=== PATIENT | male | born 1950 | race Caucasian/White ===

== ENCOUNTER → 2017-02-21 | Outpatient (CLI) | payer MEDICARE, BC, OTHER ==
[~2017-02-21] MED LIST: ALTA5CAP OR; BABY81CH OR; CORE6.25 OR; LIPI80TA OR; OMEP20TA7 OR
[2017-02-21 12:55] LABS: BASO % 0.8 % (0.0-1.0); EOS # 0.2 K/mm3 (0.0-0.50); EOS % 3.9 % (0.0-3.0); LARGE UNSTAINED CELL # 0.1 K/mm3 (0.0-0.4); LYMPH # 2.2 K/mm3 (1.5-4.5); LYMPH % 42.2 % (24.0-44.0); MEAN CORPUSCULAR HEMOGLOBIN 31.6 pg (27.0-33.0); MEAN CORPUSCULAR HGB CONC 33.7 g/dl (32.0-36.5); MEAN CORPUSCULAR VOLUME 93.7 fl (80.0-96.0); MONO # 0.4 K/mm3 (0.0-0.8); NEUTROPHILS # 2.1 K/mm3 (1.8-7.7); NEUTROPHILS % 43.1 % (36.0-66.0); PLATELET COUNT, AUTOMATED 191 k/mm3 (150-450); RED CELL DISTRIBUTION WIDTH 13.5 % (11.5-14.5)
[2017-02-21 13:11] LABS: ALBUMIN 3.5 GM/DL (3.2-5.2); ALBUMIN/GLOBULIN RATIO 1.03 (1.00-1.93); ALKALINE PHOSPHATASE 93 U/L (45-117); ALT/SGPT 55 U/L (12-78); ANION GAP 7 MEQ/L (8-16); AST/SGOT 27 U/L (15-37); BILIRUBIN,TOTAL 0.5 MG/DL (0.2-1.0); BLOOD UREA NITROGEN 14 MG/DL (7-18); CALCIUM LEVEL 8.7 MG/DL (8.8-10.2); CARBON DIOXIDE LEVEL 29 MEQ/L (21-32); CHLORIDE LEVEL 105 MEQ/L (98-107); CHOLESTEROL LEVEL 138 MG/DL (<200); CREATININE FOR GFR 0.79 MG/DL (0.70-1.30); GLOMERULAR FILTRATION RATE > 60.0 (>49); GLUCOSE, FASTING 102 MG/DL (80-110); POTASSIUM SERUM 4.2 MEQ/L (3.5-5.1); SODIUM LEVEL 141 MEQ/L (136-145); TOTAL PROTEIN 6.9 GM/DL (6.4-8.2); TRIGLYCERIDES LEVEL 61 MG/DL (<150)
[2017-02-23 00:06] LABS: PSA TOTAL 0.8 ng/mL (0.0-4.0)
== END ==
LOC: M WUC 09:04
PROVIDERS: ATTEND Nurse Practitioner Family
DX: I10 Essential (primary) hypertension (principal); E78.5 Hyperlipidemia, unspecified; I25.9 Chronic ischemic heart disease, unspecified; Z12.5 Encounter for screening for malignant neoplasm of prostate

== ENCOUNTER 2017-06-11 09:48 | Day surgery (SDC) | payer MEDICARE, BC, OTHER ==
[2017-06-11] MEDS: NS 1,000 ML IV (10:00)
[2017-06-11] MEDS ORDERED: PROPOFOL 200 MG/20 ML VIAL As Ordered ×4 (11:42→12:01)
[2017-06-11] MEDS ORDERED: LIDOCAINE 2% INJ 100 MG/5 ML SDV (FOR ANES.) As Ordered (11:42)
== END 2017-06-11 12:46 | disposition home or self-care (01) ==
LOC: M OPP 09:48
DX: Z12.11 Encounter for screening for malignant neoplasm of colon (principal); K64.0 First degree hemorrhoids; D12.3 Benign neoplasm of transverse colon; K62.1 Rectal polyp; Z80.0 Family history of malignant neoplasm of digestive organs; R12 Heartburn; K22.8 Other specified diseases of esophagus; K44.9 Diaphragmatic hernia without obstruction or gangrene; I10 Essential (primary) hypertension; E78.00 Pure hypercholesterolemia, unspecified; I25.2 Old myocardial infarction; Z95.5 Presence of coronary angioplasty implant and graft; Z79.82 Long term (current) use of aspirin; Z79.899 Other long term (current) drug therapy; Z87.891 Personal history of nicotine dependence
CPT/HCPCS: 45385

== ENCOUNTER → 2017-09-08 | Outpatient (CLI) | payer MEDICARE, BC, OTHER ==
[2017-09-08 12:40] LABS: BASO # 0.1 10^3/uL (0.0-0.2); BASO % 0.7 % (0.0-1.0); EOS # 0.4 10^3/uL (0.0-0.50); EOS % 4.8 % (0.0-3.0); HEMATOCRIT 45.8 % (42.0-52.0); HEMOGLOBIN 15.5 g/dl (13.5-17.5); IMMATURE GRANULOCYTE % 0.3 % (0-3.0); LYMPH # 2.9 10^3/uL (1.5-4.5); LYMPH % 39.8 % (24.0-44.0); MEAN CORPUSCULAR HGB CONC 33.8 g/dl (32.0-36.5); MEAN CORPUSCULAR VOLUME 91.6 fl (80.0-96.0); MONO # 0.7 10^3/uL (0.0-0.8); MONO % 9.5 % (0.0-5.0); NEUTROPHILS # 3.3 10^3/uL (1.8-7.7); NEUTROPHILS % 44.9 % (36.0-66.0); PLATELET COUNT, AUTOMATED 192 10^3/uL (150-450); RED CELL DISTRIBUTION WIDTH 12.9 % (11.5-14.5); WHITE BLOOD COUNT 7.3 10^3/uL (4.0-10.0)
[2017-09-08 13:06] LABS: ALBUMIN 3.5 GM/DL (3.2-5.2); ALKALINE PHOSPHATASE 109 U/L (45-117); ALT/SGPT 84 U/L (12-78); ANION GAP 6 MEQ/L (8-16); AST/SGOT 55 U/L (7-37); BILIRUBIN,TOTAL 0.6 MG/DL (0.2-1.0); BLOOD UREA NITROGEN 21 MG/DL (7-18); CALCIUM LEVEL 8.8 MG/DL (8.8-10.2); CARBON DIOXIDE LEVEL 29 MEQ/L (21-32); CHLORIDE LEVEL 106 MEQ/L (98-107); CHOLESTEROL LEVEL 136 MG/DL (<200); CHOLESTEROL RISK RATIO 2.193 (<5); CREATININE FOR GFR 0.73 MG/DL (0.70-1.30); GLOMERULAR FILTRATION RATE > 60.0 (>49); GLUCOSE, FASTING 88 MG/DL (70-100); HDL CHOLESTEROL 62 MG/DL (>40); LDL CHOLESTEROL 36.8 MG/DL (<100); NON-HDL-C 74 MG/DL; POTASSIUM SERUM 4.5 MEQ/L (3.5-5.1); SODIUM LEVEL 141 MEQ/L (136-145); TRIGLYCERIDES LEVEL 186 MG/DL (<150)
== END ==
LOC: M WUC 10:37
DX: I10 Essential (primary) hypertension (principal); E78.5 Hyperlipidemia, unspecified
CPT/HCPCS: 80053

== ENCOUNTER → 2018-01-28 | Outpatient (CLI) | payer MEDICARE, BC, OTHER | LOC: M RAD 07:53 | DX: M51.36 Other intervertebral disc degeneration, lumbar region (principal); M51.37 Other intervertebral disc degeneration, lumbosacral region; M25.78 Osteophyte, vertebrae; M16.12 Unilateral primary osteoarthritis, left hip; R93.7 Abnormal findings on diagnostic imaging of other parts of musculoskeletal system ==

== ENCOUNTER → 2018-01-28 | Outpatient (CLI) | payer MEDICARE, BC, OTHER | LOC: M RAD 06:57 | DX: H90.A21 Sensorineural hearing loss, unilateral, right ear, with restricted hearing on the contralateral side (principal); I67.81 Acute cerebrovascular insufficiency; G31.9 Degenerative disease of nervous system, unspecified; M51.36 Other intervertebral disc degeneration, lumbar region; M51.37 Other intervertebral disc degeneration, lumbosacral region; M25.78 Osteophyte, vertebrae; M16.12 Unilateral primary osteoarthritis, left hip; R93.7 Abnormal findings on diagnostic imaging of other parts of musculoskeletal system | CPT/HCPCS: 70551 ==

== ENCOUNTER → 2018-01-31 | Outpatient (CLI) | payer MEDICARE, BC, OTHER | LOC: M RAD 10:35 | DX: M54.5 Low back pain (principal) | CPT/HCPCS: 72148 ==

== ENCOUNTER → 2018-02-24 | Outpatient (CLI) | payer MEDICARE, BC, OTHER ==
[2018-02-24 12:23] LABS: BASO # 0.1 10^3/uL (0.0-0.2); BASO % 0.8 % (0.0-1.0); EOS # 0.3 10^3/uL (0.0-0.50); HEMATOCRIT 44.6 % (42.0-52.0); HEMOGLOBIN 15.4 g/dl (13.5-17.5); IMMATURE GRANULOCYTE % 0.3 % (0-3.0); LYMPH # 2.4 10^3/uL (1.5-4.5); LYMPH % 38.9 % (24.0-44.0); MEAN CORPUSCULAR HEMOGLOBIN 31.8 pg (27.0-33.0); MEAN CORPUSCULAR HGB CONC 34.5 g/dl (32.0-36.5); MEAN CORPUSCULAR VOLUME 92.1 fl (80.0-96.0); MONO # 0.7 10^3/uL (0.0-0.8); MONO % 10.5 % (0.0-5.0); NEUTROPHILS # 2.8 10^3/uL (1.8-7.7); NEUTROPHILS % 45.5 % (36.0-66.0); PLATELET COUNT, AUTOMATED 208 10^3/uL (150-450); RED BLOOD COUNT 4.84 10^6/uL (4.30-6.10); RED CELL DISTRIBUTION WIDTH 12.6 % (11.5-14.5); WHITE BLOOD COUNT 6.2 10^3/uL (4.0-10.0)
[2018-02-24 12:58] LABS: ALBUMIN 3.4 GM/DL (3.2-5.2); ALBUMIN/GLOBULIN RATIO 0.92 (1.00-1.93); ALKALINE PHOSPHATASE 112 U/L (45-117); ALT/SGPT 50 U/L (12-78); ANION GAP 8 MEQ/L (8-16); AST/SGOT 29 U/L (7-37); BILIRUBIN,TOTAL 0.6 MG/DL (0.2-1.0); BLOOD UREA NITROGEN 20 MG/DL (7-18); CALCIUM LEVEL 8.8 MG/DL (8.8-10.2); CARBON DIOXIDE LEVEL 28 MEQ/L (21-32); CHLORIDE LEVEL 104 MEQ/L (98-107); CHOLESTEROL LEVEL 135 MG/DL (<200); CREATININE FOR GFR 0.78 MG/DL (0.70-1.30); GLOMERULAR FILTRATION RATE > 60.0 (>49); GLUCOSE, FASTING 84 MG/DL (70-100); HDL CHOLESTEROL 60 MG/DL (>40); LDL CHOLESTEROL 51 MG/DL (<100); NON-HDL-C 75 MG/DL; POTASSIUM SERUM 4.5 MEQ/L (3.5-5.1); SODIUM LEVEL 140 MEQ/L (136-145); TOTAL PROTEIN 7.1 GM/DL (6.4-8.2); TRIGLYCERIDES LEVEL 121 MG/DL (<150)
== END ==
LOC: M WUC 10:14
DX: I10 Essential (primary) hypertension (principal); E78.5 Hyperlipidemia, unspecified; Z12.5 Encounter for screening for malignant neoplasm of prostate
CPT/HCPCS: 80053

== ENCOUNTER → 2018-09-16 | Outpatient (CLI) | payer MEDICARE, BC, OTHER ==
[~2018-09-16] MED LIST changes: +METO50TA7 PO
[2018-09-16 09:17] LABS: BASO % 0.6 % (0.0-1.0); EOS # 0.2 10^3/uL (0.0-0.50); EOS % 3.2 % (0.0-3.0); HEMOGLOBIN 16.4 g/dl (13.5-17.5); LYMPH # 2.3 10^3/uL (1.5-4.5); LYMPH % 36.3 % (24.0-44.0); MEAN CORPUSCULAR HEMOGLOBIN 31.4 pg (27.0-33.0); MEAN CORPUSCULAR HGB CONC 34.2 g/dl (32.0-36.5); MEAN CORPUSCULAR VOLUME 91.8 fl (80.0-96.0); MONO # 0.6 10^3/uL (0.0-0.8); MONO % 9.9 % (0.0-5.0); NEUTROPHILS # 3.1 10^3/uL (1.8-7.7); NEUTROPHILS % 49.5 % (36.0-66.0); PLATELET COUNT, AUTOMATED 177 10^3/uL (150-450); RED BLOOD COUNT 5.23 10^6/uL (4.30-6.10); WHITE BLOOD COUNT 6.3 10^3/uL (4.0-10.0)
[2018-09-16 10:11] LABS: ALBUMIN 3.6 GM/DL (3.2-5.2); ALT/SGPT 93 U/L (12-78); BILIRUBIN,TOTAL 0.9 MG/DL (0.2-1.0); BLOOD UREA NITROGEN 21 MG/DL (7-18); CALCIUM LEVEL 8.6 MG/DL (8.8-10.2); CARBON DIOXIDE LEVEL 30 MEQ/L (21-32); CHLORIDE LEVEL 105 MEQ/L (98-107); CHOLESTEROL LEVEL 179 MG/DL (<200); CHOLESTEROL RISK RATIO 2.294 (<5); CREATININE FOR GFR 0.97 MG/DL (0.70-1.30); GLOMERULAR FILTRATION RATE > 60.0 (>49); GLUCOSE, FASTING 101 MG/DL (70-100); HDL CHOLESTEROL 78 MG/DL (>40); LDL CHOLESTEROL 72 MG/DL (<100); NON-HDL-C 101 MG/DL; POTASSIUM SERUM 3.9 MEQ/L (3.5-5.1); SODIUM LEVEL 140 MEQ/L (136-145); TRIGLYCERIDES LEVEL 144 MG/DL (<150)
== END ==
LOC: M LAB 08:53
PROVIDERS: ATTEND Nurse Practitioner Family
DX: I10 Essential (primary) hypertension (principal); E78.5 Hyperlipidemia, unspecified; Z79.82 Long term (current) use of aspirin

== ENCOUNTER → 2019-03-09 | Outpatient (REF) | payer MEDICARE, MEDICAID ==
[2019-03-09 11:59] LABS: BASO % 0.7 % (0.0-1.0); EOS # 0.3 10^3/uL (0.0-0.5); EOS % 5.1 % (0.0-3.0); HEMATOCRIT 46.6 % (42.0-52.0); HEMOGLOBIN 15.7 g/dl (13.5-17.5); LYMPH % 35.2 % (24.0-44.0); MEAN CORPUSCULAR HEMOGLOBIN 31.7 pg (27.0-33.0); MEAN CORPUSCULAR HGB CONC 33.7 g/dl (32.0-36.5); MONO # 0.6 10^3/uL (0.0-0.8); NEUTROPHILS # 2.8 10^3/uL (1.5-8.5); NEUTROPHILS % 48.8 % (36.0-66.0); PLATELET COUNT, AUTOMATED 192 10^3/uL (150-450); RED BLOOD COUNT 4.96 10^6/uL (4.30-6.10); WHITE BLOOD COUNT 5.7 10^3/uL (4.0-10.0)
[2019-03-09 12:58] LABS: HEMOGLOBIN A1c 5.5 %
[2019-03-09 13:02] LABS: ALBUMIN 3.5 GM/DL (3.2-5.2); ALT/SGPT 79 U/L (12-78); BILIRUBIN,TOTAL 0.7 MG/DL (0.2-1.0); BLOOD UREA NITROGEN 16 MG/DL (7-18); CALCIUM LEVEL 8.7 MG/DL (8.8-10.2); CARBON DIOXIDE LEVEL 29 MEQ/L (21-32); CHLORIDE LEVEL 104 MEQ/L (98-107); CHOLESTEROL LEVEL 132 MG/DL (<200); CHOLESTEROL RISK RATIO 2.163 (<5); CREATININE FOR GFR 0.78 MG/DL (0.70-1.30); FREE T4 1.02 NG/DL (0.76-1.46); GLOMERULAR FILTRATION RATE > 60.0 (>49); GLUCOSE, FASTING 102 MG/DL (70-100); HDL CHOLESTEROL 61 MG/DL (>40); LDL CHOLESTEROL 44 MG/DL (<100); MAGNESIUM LEVEL 1.8 MG/DL (1.8-2.4); NON-HDL-C 71 MG/DL; SODIUM LEVEL 139 MEQ/L (136-145); TOTAL PROTEIN 6.6 GM/DL (6.4-8.2); TRIGLYCERIDES LEVEL 133 MG/DL (<150)
== END ==
LOC: M SFHCPLAZ 09:55
PROVIDERS: ATTEND Nurse Practitioner Family
DX: I10 Essential (primary) hypertension (principal); E78.5 Hyperlipidemia, unspecified; Z12.5 Encounter for screening for malignant neoplasm of prostate
CPT/HCPCS: 36415; 80053; 80061; 83036; 83735; 84439; 84443; 85025; G0103

== ENCOUNTER → 2019-03-17 | Outpatient (CLI) | payer MEDICARE, BC, OTHER ==
--- NOTE | 2019-03-17 10:08 | REP ---
RIGHT UPPER QUADRANT ULTRASOUND: Real-time sonographic evaluation of the right upper quadrant was performed. Gallbladder demonstrates no evidence of intraluminal sludge or calculi, wall thickening or pericholecystic fluid. There is no intrahepatic or extrahepatic biliary dilatation, common bile measuring 4 mm. Liver demonstrates diffuse increased echotexture compatible with diffuse fibro fatty infiltration. No gross liver mass is seen. Pancreas is not well seen due to overlying bowel gas, but demonstrates no gross abnormality. The right kidney demonstrates no hydronephrosis with normal size 11.6 cm in length. IMPRESSION: Diffuse fibrofatty infiltration of the liver. Electronically Signed by Reji Hernandez MD 03/17/2019 06:21 P
== END ==
LOC: M RAD 07:49
PROVIDERS: ATTEND Nurse Practitioner Family
DX: R74.8 Abnormal levels of other serum enzymes (principal)

== ENCOUNTER 2022-08-01 00:31 | Emergency (ER) | payer MEDICARE, BC, OTHER ==
[2022-08-01 00:39] VITALS: BP 159/89
[2022-08-01 01:02] LABS: HEMATOCRIT 49.3 % (42.0-52.0); HEMOGLOBIN 16.6 g/dl (13.5-17.5); MEAN CORPUSCULAR HEMOGLOBIN 31.3 pg (27.0-33.0); MEAN CORPUSCULAR HGB CONC 33.7 g/dl (32.0-36.5); PLATELET COUNT, AUTOMATED 241 10^3/uL (150-450); WHITE BLOOD COUNT 10.9 10^3/uL (4.0-10.0)
[2022-08-01 01:25] LABS: ETHYL ALCOHOL (ETHANOL) 0.251 % (0.000-0.010)
[2022-08-01 01:33] LABS: BLOOD UREA NITROGEN 21 MG/DL (9-23); CARBON DIOXIDE LEVEL 26 MMOL/L (20-31); CHLORIDE LEVEL 105 MMOL/L (98-107); GLOMERULAR FILTRATION RATE > 60.0 (>42); GLUCOSE, FASTING 97 MG/DL (74-106); MAGNESIUM LEVEL 1.8 MG/DL (1.8-2.4); POTASSIUM SERUM 3.7 MMOL/L (3.5-5.1); SODIUM LEVEL 142 MMOL/L (136-145)
[2022-08-01 01:37] LABS: ATYPICAL LYMPH 4 % (0-5); BASOPHILS 1 % (0-1); EOSINOPHILS 4 % (0-3); LYMPHOCYTES 59 % (16-44); MONOCYTES 7 % (0-5); NEUTROPHILS 25 % (28-66)
[2022-08-01 01:38] LABS: PLATELET ESTIMATE NORMAL (NORMAL)
[2022-08-01 01:39] LABS: ANISOCYTOSIS 1+; MICROCYTOSIS 1+
== END 2022-08-01 02:00 | disposition home or self-care (01) ==
LOC: M ED 00:31
DX: S00.03XA Contusion of scalp, initial encounter (principal); F10.129 Alcohol abuse with intoxication, unspecified; W10.9XXA Fall (on) (from) unspecified stairs and steps, initial encounter; Y92.099 Unspecified place in other non-institutional residence as the place of occurrence of the external cause; M48.02 Spinal stenosis, cervical region; I10 Essential (primary) hypertension; E78.5 Hyperlipidemia, unspecified; K21.9 Gastro-esophageal reflux disease without esophagitis; Z79.82 Long term (current) use of aspirin; Z79.899 Other long term (current) drug therapy

== ENCOUNTER 2023-01-06 09:34 | Day surgery (SDC) | payer MEDICARE, BC, OTHER ==
[~2023-01-06] VITALS: Ht 172.7 cm; Wt 77.2 kg
[~2023-01-06 09:34] MED LIST changes: +ACET650T61 PO; +ASPI81TA26 PO; +ATOR80TA59 PO; +METO1TAB7 PO; +NS 1,000 ML IV ONE; +OMEP1CAP73 PO; +RAMI1CAP24 PO
[2023-01-06] MEDS ORDERED: propofoL 200 MG/20 ML VIAL As Ordered ONE ×3 (11:30→11:46)
[2023-01-06 11:59] VITALS: TEMP 96.4
[2023-01-06 12:18] VITALS: BP 124/64; O2SAT 98
== END 2023-01-06 12:30 | disposition home or self-care (01) ==
LOC: M OPP 09:34
PROVIDERS: ATTEND Internal Medicine Gastroenterology
DX: Z12.11 Encounter for screening for malignant neoplasm of colon (principal); Z86.010 Personal history of colon polyps; Z80.0 Family history of malignant neoplasm of digestive organs; D12.6 Benign neoplasm of colon, unspecified; K64.0 First degree hemorrhoids; K57.30 Diverticulosis of large intestine without perforation or abscess without bleeding; Z79.02 Long term (current) use of antithrombotics/antiplatelets; Z79.82 Long term (current) use of aspirin; Z79.899 Other long term (current) drug therapy

== ENCOUNTER → 2024-08-26 | Outpatient (CLI) | payer MEDICARE, BC, OTHER ==
[~2024-08-26] MED LIST changes: -NS 1,000 ML IV ONE; -RAMI1CAP24 PO; +RAMI5CAP60 PO
== END ==
LOC: M SOG 07:49
PROVIDERS: ATTEND Physician Assistant
DX: M79.644 Pain in right finger(s) (principal)